=== PATIENT | female | born 1985 | race African-American/Black ===

== ENCOUNTER 2020-08-14 23:51 | Emergency (ER) | payer OTHER ==
[~2020-08-14] VITALS: Ht 167.6 cm; Wt 86.2 kg
[2020-08-15 00:04] VITALS: BP 163/101
--- NOTE | 2020-08-15 00:11 | PCM.EKG ---
[facility] Test Date: 2020-08-15 Test Time: 00:07:05 Pat Name: HALEIGH PINEDA Department: Room: Gender: F Sap Sd Analyst: ED : 1985 Requested By: CHEVY MAZARIEGOS Order Number: [id number] Reading MD: Measurements Intervals [place] Rate: 56 P: 23 HI: 122 QRS: 41 QRSD: 89 T: 37 QT: 442 QTc: 427 Interpretive Statements Sinus rhythm No previous ECG available for comparison Please click the below link to view image of tracing.
[2020-08-15] MEDS ORDERED: ASPIRIN ONE (00:12)
--- NOTE | 2020-08-15 00:13 | ER.PDOC ---
General Chief Complaint: Chest Pain-Cardiac Nature Stated Complaint: CHEST & BACK PAIN Time seen by MD: 23:56 Source: patient Exam Limitations: no limitations History of Present Illness Initial Comments Patient is a 35-year-old woman who presents the emergency department with chief complaint of left-sided chest pain she had for the last 3 days.Patient reports pain in her left chest radiating to her back that she states is sharp and dull, constant, unchanged with position. Patient denies any shortness of breath, nausea, vomiting, diaphoresis. Patient denies any nasal congestion, sore throat, cough. Patient denies any shortness of breath, nausea, vomiting, diaphoresis. Patient denies any nasal congestion, sore throat, cough. Patient denies any unusual pain or swelling of her legs or history of blood clots. Patient denies any unusual activity or trauma.Patient states she took some aspirin yesterday but is continued to have pain. Patient states she has a history of hypertension but does not take any medication for it. Patient denies history of diabetes, hypercholesterolemia, cardiac disease, family history of cardiac disease, illicit drug use.Patient states she is 1/2 pack a day smoker. Timing/Duration: constant, getting worse Severity/Quality: severe, dull, sharp Radiation: back Activities at Onset: none Prior CP/Workup: Stress Test (1.5 years ago) Modifying Factors: other (none) Nitro Today/Relief: No Nitro Taken Today Aspirin Today: No Aspirin Today Associated Symptoms: back pain Prior symptoms/Treatment: Similar symptoms previous Allergies: Coded Allergies: naproxen (Verified Allergy, Unknown, 08/15/20) Past Medical History Medical History: hypertension Surgical History: (x 3), hysterectomy Family History Significant Family History: no pertinent family hx Social History Smoking: less than 1 pack/day Alcohol Use: occassionally Drug Use: none Constitutional: denies fever EENTM: denies throat pain Respiratory: denies cough, denies shortness of breath Cardiovascular: chest pain; denies palpitations Gastrointestinal: denies abdominal pain, denies diarrhea, denies nausea, denies rectal bleeding, denies vomiting Genitourinary: denies dysuria, denies hematuria Musculoskeletal: back pain; denies muscle pain Skin: denies lesions (hydroadenitis supporativa bilateral) Psychiatric/Neurological: denies anxiety Hematologic/Lymphatic: denies easy bleeding All Other Systems: Reviewed and Negative Physical Exam General Appearance: No Apparent Distress, WD/WN, Obese HEENT: PERRL/EOMI, Normal ENT Inspection, Pharynx Normal Neck: Non-Tender, Full Range of Motion, Supple, Normal Inspection Respiratory: chest non-tender, lungs clear, normal breath sounds, no respiratory distress, no accessory muscle use Cardiovascular: Normal Peripheral Pulses, Regular Rate, Rhythm, No Edema, No Gallop, No JVD, No Murmur Gastrointestinal: Normal Bowel Sounds, No Organomegaly, No Pulsatile Mass, Non Tender, Soft Extremities: Normal Range of Motion, Non-Tender, Normal Inspection, No Pedal Edema, No Calf Tenderness, Normal Capillary Refill 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 Patient's troponin was normal. Patient's chest x-ray shows no focal infiltrates or cardiomegaly per the radiologist. I did review the patient's chest x-ray images. Patient CBC was normal. Patient CMP showed potassium of 3.1 but was otherwise unremarkable. We gave the patient 40 mEq of oral potassium to help with her hypokalemia.Maye ent's D-dimer was mildly elevated at 0.53 concerning for pulmonary embolism.Due to the patient's chest pain with elevated D-dimer she underwent CTA of her chest which was negative for pulmonary embolism or other serious intrathoracic abnormality per the radiologist. I viewed the patient CT images. Patient received aspirin 324 mg orally with minimal improvement in her pain. Patient was given ketorolac 30 mg IV with some improvement in her pain. Patient's blood pressures improved throughout the course of her emergency department stay.Patient has chest pain of uncertain etiology. Patient does not appear to have STEMI, pulmonary embolism, congestive heart failure, pneumothorax, flail chest, aortic dissection, aortic aneurysm, pneumonia, necrotizing fasciitis, burn, or other serious etiology of her symptoms. Patient will be discharged home. EKG/XRAY/CT/US EKG: NSR, rhythm, MN, QRS, no ST T wave changes ER DEPART Departure Time of Disposition: 02:08 Disposition: 01 HOME, SELF-CARE Impression: Primary Impression: Chest pain Condition: Stable Referrals: PCP,UNKNOWN (PCP) PRIMARY CARE PROVIDER Additional Instructions: Thank you for your visit today and trusting us with your health care needs. Return immediately if worse chest pain, difficulty breathing, severe cough, persistent vomiting, fever. Rest, warm compresses for 20 minutes, 3 times a day. Meloxicam as prescribed for chest pain.Follow a low-sodium diet. Keep a blood pressure log. Follow-up with your primary care physician regarding your chest pain and your blood pressure. Duration or Time Spent with Pa: 30 Return to Work/School Can a patient return to work?: Yes Problem Qualifiers Primary Impression: Chest pain Chest pain type: unspecified Qualified Codes: R07.9 - Chest pain, unspecified CHEVY MAZARIEGOS MD Aug 15, 2020 00:13
[2020-08-15 00:23] LABS: BASOPHIL % 0.6 % (0.0-0.2); EOSINOPHIL # 0.1 10^3/uL (0.0-0.2); EOSINOPHIL % 0.8 % (0.0-5.0); LYMPHOCYTES # 3.04 10^3/uL1 (1.0-4.8); LYMPHOCYTES % 47.6 % (24.0-44.0); MEAN CORP HGB 27.1 pg (26-34); MONOCYTES # 0.3 10^3/uL (0.3-0.8); MONOCYTES % 5.3 % (5.0-12.0); NEUTROPHIL # 2.9 10^3/uL (1.8-7.7); NEUTROPHILS % 45.4 % (41.0-85.0); PLATELET COUNT 249 10^3/uL (150-400); RED CELL DISTRIBUTION WIDTH 13.8 % (11.5-14.5)
[2020-08-15] MEDS ORDERED: ASPIRIN PO PRN (00:30)
--- NOTE | 2020-08-15 00:42 | NUR ---
D-DIMER 0.53, EDP NOTIFIED
[2020-08-15 00:44] LABS: ALANINE AMINOTRANSFERASE(ML) 20 U/L (12-78); ALKALINE PHOSPHATASE 71 U/L (50-136); ASPARTATE AMINO TRANSFERASE 17 U/L (0-35); CALCIUM 8.7 mg/dL (8.4-10.5); CARBON DIOXIDE 24.7 mmol/L (20.0-32); GLUCOSE 92 mg/dL (70-110)
[2020-08-15] MEDS ORDERED: EFFER-K 10 MEQ TABLET EFF PO STA (00:45)
[2020-08-15] MEDS ORDERED: KLOR-CON 10 PO ONE (00:49)
[2020-08-15] MEDS ORDERED: TORADOL IV STA (00:50)
[2020-08-15] MEDS ORDERED: TORADOL ONE (00:52)
--- NOTE | 2020-08-15 01:04 | DIREP ---
PROCEDURE:CHEST 2 VIEWS COMPARISON:None. INDICATIONS:chest pain FINDINGS: LUNGS/PLEURA:No significant pulmonary parenchymal abnormalities. No effusions. VASCULATURE:Normal. Unremarkable pulmonary vasculature. CARDIAC:Normal. No cardiac silhouette abnormality or cardiomegaly. MEDIASTINUM:Normal. No visible mass or adenopathy. BONES:Normal. No fracture or visible bony lesion. OTHER:Negative. CONCLUSION:No infiltrate, no effusion, no pneumothorax. Dictated by: Zack Yo MD on 08/15/2020 at 01:02 AM
[2020-08-15 01:05] VITALS: BP 146/104
--- NOTE | 2020-08-15 01:54 | DIREP ---
PROCEDURE:CTA - CHEST (NON CORONARY) COMPARISON:None. INDICATIONS:chest pain, elevated D-dimer TECHNIQUE:After obtaining the patient's consent, CTA images were obtained without and with non-ionic intravenous contrast material. Multi-planar MIP/3-D images were created to optimize visualization of vascular anatomy. Bolus timing was optimized for the thoracic aorta, not the pulmonary arteries. Maximum opacifications of the pulmonary arteries is slightly below the normal threshold of 185 Hounsfield units (suboptimal) FINDINGS: VASCULATURE:Normal. THORACIC AORTA:Normal. LUNGS:Normal. MEDIASTINUM/VISHNU:Normal. CARDIAC:Normal. PLEURA:Normal. CHEST WALL:Normal. LIMITED ABDOMEN:Undissolved medication in the stomach. BONES:Normal. OTHER:Normal. CONCLUSION:Suboptimal opacification of the pulmonary arteries. No emboli detected. Normal thoracic aorta. Dictated by: Zack Yo MD on 08/15/2020 at 01:47 AM
[2020-08-15 02:15] VITALS: BP 138/96
--- NOTE | 2020-08-15 02:18 | NUR ---
IV DC'D TIP INTACT, NO BLEEDING
== END 2020-08-15 02:20 | disposition home or self-care (01) ==
LOC: ER 23:51
DX: R07.89 Other chest pain (principal); M54.9 Dorsalgia, unspecified; I10 Essential (primary) hypertension; F17.210 Nicotine dependence, cigarettes, uncomplicated; Z88.6 Allergy status to analgesic agent; Z90.710 Acquired absence of both cervix and uterus
CPT/HCPCS: 36415; 71046; 71275; 80053; 83880; 84484; 85025; 85379; 93005; 96374; 99285; J1885; J3490; Q9965

== ENCOUNTER 2020-09-29 21:48 | Emergency (ER) | payer OTHER ==
[~2020-09-29] VITALS: Ht 167.6 cm; Wt 86.2 kg
[2020-09-29 22:09] VITALS: BP 149/97
--- NOTE | 2020-09-29 23:01 | PCM.EKG ---
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
--- NOTE | 2020-09-29 23:05 | ER.PDOC ---
General Chief Complaint: Chest Pain-Cardiac Nature Stated Complaint: ARM,SHOULDER,CHEST PAIN Time seen by MD: 22:50 Source: patient Exam Limitations: no limitations History of Present Illness Initial Comments This is a 35-year-old female whose primary complaint is chest pain. She states that she has had intermittent chest pain going on for years but it was more frequent yesterday and then today it has been continuous all day long ever since she woke up this morning. She describes pain in the anterior chest that is sharp and pleuritic in nature. It is worsened with deep inspiration.She does not feel short of breath and there is been no fever, chills or cough. She does have pain that radiates to both shoulders. Allergies: Coded Allergies: naproxen (Verified Allergy, Unknown, 08/15/20) Past Medical History Medical History: asthma, hypertension, other Surgical History: Social History Alcohol Use: occassionally Drug Use: none Constitutional: denies chills, denies fever EENTM: denies blurred vision, denies double vision Respiratory: denies cough, denies shortness of breath Cardiovascular: chest pain; denies syncope Gastrointestinal: denies abdominal pain, denies vomiting Genitourinary: denies dysuria, denies hematuria Musculoskeletal: denies back pain, denies joint pain Skin: denies lesions, denies rash Psychiatric/Neurological: denies anxiety, denies depressed Endocrine: denies increased thrist, denies increased urine Hematologic/Lymphatic: denies easy bleeding, denies easy bruising Physical Exam General Appearance: No Apparent Distress HEENT: PERRL/EOMI, Normal ENT Inspection, Pharynx Normal Neck: Full Range of Motion, Supple, Normal Inspection Respiratory: chest non-tender, lungs clear, normal breath sounds, no respiratory distress Cardiovascular: Normal Peripheral Pulses, Regular Rate, Rhythm, No Edema, No Gallop, No Murmur Gastrointestinal: Normal Bowel Sounds, Non Tender Extremities: Normal Range of Motion, Non-Tender, Normal Inspection 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, No Motor/Sensory Deficits, Alert, Normal Mood/Affect, Oriented x 3 Skin: Normal Color, Warm/Dry Lymphatic: No Adenopathy Results/Orders Results/Orders Orders - BEAU WARE MD Cbc With Auto Diff (09/29/20 22:56) Comprehensive Metabolic Panel (09/29/20 22:56) Troponin I (09/29/20 22:56) Ekg-Routine (09/29/20 22:56) Xr Chest 1v (09/29/20 22:56) Vital Signs Date Time Temp Pulse Resp B/P (MAP) Pulse Ox O2 Delivery O2 Flow Rate FiO2 09/29/20 22:09 98.0 78 18 09/29/20 22:09 98.0 78 18 149/97 (114) 100 Room Air 09/29/20 22:09 98.0 78 18 100 Progress Progress EKG per my interpretation:There is normal sinus rhythm at a rate of 60. QRS complexes are narrow and the QRS axis is normal. The [place] interval is slightly shortened. The QT interval is normal.There is no ectopy. There are no ischemic ST segments or T waves. Continuous chest pain for approximately 18 hours with negative troponin and normal EKG. No evidence of acute myocardial infarction, pulmonary embolism, aortic dissection, pneumonia, pneumothorax or pericarditis. Patient stable for discharge to outpatient follow-up. EKG/XRAY/CT/US EKG: NSR ER DEPART Departure Time of Disposition: 01:02 Disposition: 01 HOME / SELF CARE / HOMELESS Impression: Primary Impression: Chest pain Condition: Stable Patient Instructions: Chest Pain (Nonspecific) Referrals: PCP,UNKNOWN (PCP) PRIMARY CARE PROVIDER Duration or Time Spent with Pa: 10 Return to Work/School Can a patient return to work?: Yes BEAU WARE MD Sep 29, 2020 23:05
--- NOTE | 2020-09-29 23:23 | DIREP ---
PROCEDURE:CHEST 1 VIEW COMPARISON:[facility], CR, XRAY CHEST 2 VWS, 08/15/2020, 00:09 AM. INDICATIONS:chest pain FINDINGS: LUNGS/PLEURA:No significant pulmonary parenchymal abnormalities. No effusions. VASCULATURE:Normal. Unremarkable pulmonary vasculature. CARDIAC:Normal. No cardiac silhouette abnormality or cardiomegaly. MEDIASTINUM:Normal. No visible mass or adenopathy. BONES:Normal. No fracture or visible bony lesion. OTHER:Negative. CONCLUSION:No active cardiopulmonary process demonstrated. Dictated by: Erasmo Lorenzo M.D. on 09/29/2020 at 11:21 PM
[2020-09-29 23:50] LABS: BASOPHIL % 0.2 % (0.0-0.2); EOSINOPHIL % 0.1 % (0.0-5.0); LYMPHOCYTES # 2.92 10^3/uL1 (1.0-4.8); LYMPHOCYTES % 33.9 % (24.0-44.0); MEAN CORP HGB 27.6 pg (26-34); MONOCYTES # 0.4 10^3/uL (0.3-0.8); MONOCYTES % 4.6 % (5.0-12.0); NEUTROPHIL # 5.3 10^3/uL (1.8-7.7); NEUTROPHILS % 61.2 % (41.0-85.0); PLATELET COUNT 193 10^3/uL (150-400)
[2020-09-30 00:12] LABS: ALANINE AMINOTRANSFERASE(ML) 23 U/L (12-78); ALKALINE PHOSPHATASE 61 U/L (50-136); ASPARTATE AMINO TRANSFERASE 15 U/L (0-35); CALCIUM 8.5 mg/dL (8.4-10.5); CARBON DIOXIDE 21.6 mmol/L (20.0-32); GLUCOSE 95 mg/dL (70-110)
[2020-09-30] MEDS ORDERED: TYLENOL PO STA (01:12)
[2020-09-30] MEDS ORDERED: TYLENOL PO ONE (01:17)
[2020-09-30 01:20] VITALS: BP 142/89
== END 2020-09-30 01:21 | disposition home or self-care (01) ==
LOC: ER 21:48
DX: R07.9 Chest pain, unspecified (principal); I10 Essential (primary) hypertension; J45.909 Unspecified asthma, uncomplicated; Z88.6 Allergy status to analgesic agent
CPT/HCPCS: 36415; 71045; 80053; 84484; 85025; 93005; 99285; A9150